=== PATIENT | female | born 1965 | race Two or more races ===

== ENCOUNTER → 2017-05-11 | Outpatient (CLI) | payer OTHER ==
[~2017-05-11] VITALS: Ht 152.4 cm; Wt 59.0 kg
[~2017-05-11] MED LIST: FLEXERIL10 MG PO; MAXITROL EYE DRO5 ML OP; TRAM1TAB98 PO; TRAMADOL HCL50 MG PO
== END | disposition home or self-care (01) ==
LOC: PPHC 09:52
DX: K13.79 Other lesions of oral mucosa (principal)

== ENCOUNTER 2018-07-26 09:52 | Outpatient (CLI) | payer OTHER | END 2018-07-26 10:10 | disposition home or self-care (01) | LOC: LAB 09:52 | DX: E03.8 Other specified hypothyroidism (principal); N95.1 Menopausal and female climacteric states; Z13.1 Encounter for screening for diabetes mellitus; Z12.11 Encounter for screening for malignant neoplasm of colon; E55.9 Vitamin D deficiency, unspecified; E78.2 Mixed hyperlipidemia ==

== ENCOUNTER → 2018-07-27 | Outpatient (CLI) | payer OTHER | END | disposition home or self-care (01) | LOC: MAMO-SONO 12:12 | DX: Z12.31 Encounter for screening mammogram for malignant neoplasm of breast (principal) ==

== ENCOUNTER → 2019-01-31 08:34 | Outpatient (CLI) | payer OTHER | END | disposition home or self-care (01) | LOC: LAB 08:34 | DX: J11.1 Influenza due to unidentified influenza virus with other respiratory manifestations (principal) ==

== ENCOUNTER 2019-10-26 06:13 | Outpatient (CLI) | payer OTHER | END 2019-10-26 06:16 | disposition home or self-care (01) | LOC: CERTIFICAD 06:13 | PROVIDERS: ATTEND Family Medicine | DX: Z11.1 Encounter for screening for respiratory tuberculosis (principal) ==

== ENCOUNTER 2019-11-17 11:06 | Emergency (ER) | payer OTHER ==
[~2019-11-17] VITALS: Ht 165.1 cm; Wt 56.7 kg
== END 2019-11-17 15:25 | disposition home or self-care (01) ==
LOC: ER 11:06
DX: R10.13 Epigastric pain (principal); Z03.818 Encounter for observation for suspected exposure to other biological agents ruled out

== ENCOUNTER → 2019-12-05 08:00 | Outpatient (CLI) | payer OTHER | END | disposition home or self-care (01) | LOC: PPH VACUNA 08:00 | DX: Z23 Encounter for immunization (principal) ==

== ENCOUNTER 2020-03-05 14:11 | Outpatient (CLI) | payer OTHER | END 2020-03-05 15:00 | disposition home or self-care (01) | LOC: PPH VACUNA 14:11 | DX: Z23 Encounter for immunization (principal) ==

== ENCOUNTER → 2020-11-11 08:54 | Outpatient (CLI) | payer OTHER | END | disposition home or self-care (01) | LOC: RAD 08:54 | PROVIDERS: ATTEND General Practice | DX: R05 Cough (principal); I10 Essential (primary) hypertension ==

== ENCOUNTER 2020-12-20 15:00 | Outpatient (CLI) | payer OTHER | END 2020-12-20 15:30 | disposition home or self-care (01) | LOC: PPH VACUNA 15:00 | PROVIDERS: ATTEND Emergency Medicine Pediatric Emergency Medicine | DX: Z23 Encounter for immunization (principal) ==

== ENCOUNTER → 2020-12-26 11:00 | Outpatient (CLI) | payer OTHER ==
[~2020-12-26 11:00] MED LIST changes: +NORFLEX100MG PO
== END | disposition home or self-care (01) ==
LOC: PPH VACUNA 10:00
PROVIDERS: ATTEND Emergency Medicine Pediatric Emergency Medicine
DX: Z23 Encounter for immunization (principal)

== ENCOUNTER 2021-02-20 07:26 | Outpatient (CLI) | payer OTHER ==
[~2021-02-20 07:26] MED LIST changes: -NORFLEX100MG PO
== END 2021-02-20 07:45 | disposition home or self-care (01) ==
LOC: MAMO-SONO 07:26
PROVIDERS: ATTEND Internal Medicine Cardiovascular Disease
DX: R10.84 Generalized abdominal pain (principal); N64.59 Other signs and symptoms in breast; N60.11 Diffuse cystic mastopathy of right breast; N60.12 Diffuse cystic mastopathy of left breast

== ENCOUNTER → 2021-02-26 | Outpatient (CLI) | payer OTHER ==
[~2021-02-26] MED LIST changes: +NORFLEX100MG PO
== END | disposition home or self-care (01) ==
LOC: NUCLEAR 08:37
PROVIDERS: ATTEND Internal Medicine Cardiovascular Disease
DX: M81.0 Age-related osteoporosis without current pathological fracture (principal); E55.9 Vitamin D deficiency, unspecified

== ENCOUNTER 2021-02-28 09:20 | Emergency (ER) | payer OTHER ==
[~2021-02-28] VITALS: Ht 152.4 cm; Wt 56.7 kg
[~2021-02-28 09:20] MED LIST changes: -NORFLEX100MG PO
[2021-02-28] MEDS ORDERED: NORFLEX100MG PO (11:33)
== END 2021-02-28 12:09 | disposition home or self-care (01) ==
LOC: ER 09:20
DX: M54.2 Cervicalgia (principal); M25.552 Pain in left hip; M54.50 Low back pain, unspecified; V49.88XA Car occupant (driver) (passenger) injured in other specified transport accidents, initial encounter; Y92.89 Other specified places as the place of occurrence of the external cause

== ENCOUNTER 2021-05-05 05:45 | Day surgery (SDC) | payer OTHER ==
[~2021-05-05 05:45] MED LIST changes: +NORFLEX100MG PO
== END 2021-05-05 13:35 | disposition home or self-care (01) ==
LOC: AMB-ENDOS 05:45
PROVIDERS: ATTEND Surgery
DX: R19.4 Change in bowel habit (principal); K92.2 Gastrointestinal hemorrhage, unspecified

== ENCOUNTER 2021-06-12 07:12 | Outpatient (CLI) | payer OTHER | END 2021-06-12 07:13 | disposition home or self-care (01) | LOC: NUCLEAR 07:12 | PROVIDERS: ATTEND Surgery | DX: K92.2 Gastrointestinal hemorrhage, unspecified (principal) ==

== ENCOUNTER 2021-11-12 06:23 | Outpatient (CLI) | payer OTHER | END 2021-11-12 06:24 | disposition home or self-care (01) | LOC: LAB 06:23 | PROVIDERS: ATTEND General Practice | DX: R05.9 Cough, unspecified (principal); Z11.3 Encounter for screening for infections with a predominantly sexual mode of transmission ==

== ENCOUNTER 2021-11-19 08:00 | Outpatient (CLI) | payer OTHER | END 2021-11-19 08:05 | disposition home or self-care (01) | LOC: PPH VACUNA 08:00 | PROVIDERS: ATTEND Emergency Medicine Pediatric Emergency Medicine | DX: Z23 Encounter for immunization (principal) ==

== ENCOUNTER 2021-12-12 06:34 | Outpatient (CLI) | payer OTHER | END 2021-12-12 06:35 | disposition home or self-care (01) | LOC: LAB 06:34 | PROVIDERS: ATTEND General Practice | DX: E78.5 Hyperlipidemia, unspecified (principal); E55.9 Vitamin D deficiency, unspecified; N39.0 Urinary tract infection, site not specified; R42 Dizziness and giddiness; Z00.00 Encounter for general adult medical examination without abnormal findings ==

== ENCOUNTER 2022-03-05 09:06 | Outpatient (CLI) | payer OTHER | END 2022-03-05 09:16 | disposition home or self-care (01) | LOC: PPH VACUNA 09:06 | PROVIDERS: ATTEND Emergency Medicine Pediatric Emergency Medicine | DX: Z23 Encounter for immunization (principal) ==

== ENCOUNTER 2022-07-01 06:24 | Outpatient (CLI) | payer OTHER | END 2022-07-01 13:14 | disposition home or self-care (01) | LOC: LAB 06:24 | DX: E78.5 Hyperlipidemia, unspecified (principal); E55.9 Vitamin D deficiency, unspecified; N39.0 Urinary tract infection, site not specified; R10.9 Unspecified abdominal pain; Z00.00 Encounter for general adult medical examination without abnormal findings ==

== ENCOUNTER → 2022-07-10 06:51 | Outpatient (CLI) | payer OTHER | END | disposition home or self-care (01) | LOC: LAB 06:51 | PROVIDERS: ATTEND General Practice | DX: N39.0 Urinary tract infection, site not specified (principal) ==

== ENCOUNTER 2022-07-31 10:47 | Outpatient (CLI) | payer OTHER | END 2022-07-31 14:44 | disposition home or self-care (01) | LOC: LAB 10:47 | PROVIDERS: ATTEND Urology | DX: N30.00 Acute cystitis without hematuria (principal) ==

== ENCOUNTER 2022-09-23 09:07 | Outpatient (CLI) | payer OTHER | END 2022-09-23 09:13 | disposition home or self-care (01) | LOC: SONOGRAMA 09:07 | PROVIDERS: ATTEND Obstetrics & Gynecology Gynecology | DX: N60.12 Diffuse cystic mastopathy of left breast (principal); N60.11 Diffuse cystic mastopathy of right breast; Z12.31 Encounter for screening mammogram for malignant neoplasm of breast; R10.2 Pelvic and perineal pain ==

== ENCOUNTER 2022-09-28 06:19 | Outpatient (CLI) | payer OTHER | END 2022-09-28 06:20 | disposition home or self-care (01) | LOC: LAB 06:19 | PROVIDERS: ATTEND Obstetrics & Gynecology Gynecology | DX: D64.9 Anemia, unspecified (principal); E03.9 Hypothyroidism, unspecified; E55.9 Vitamin D deficiency, unspecified; E78.5 Hyperlipidemia, unspecified; Z12.11 Encounter for screening for malignant neoplasm of colon ==

== ENCOUNTER → 2022-11-04 06:18 | Outpatient (CLI) | payer OTHER | END | disposition home or self-care (01) | LOC: LAB 06:18 | PROVIDERS: ATTEND Internal Medicine Cardiovascular Disease | DX: E78.1 Pure hyperglyceridemia (principal); E11.9 Type 2 diabetes mellitus without complications ==

== ENCOUNTER 2022-11-13 07:55 | Outpatient (CLI) | payer OTHER | END 2022-11-13 08:06 | disposition home or self-care (01) | LOC: NUCLEAR 07:55 | PROVIDERS: ATTEND Internal Medicine | DX: I25.10 Atherosclerotic heart disease of native coronary artery without angina pectoris (principal) ==

== ENCOUNTER 2022-12-11 08:25 | Outpatient (CLI) | payer OTHER | END 2022-12-11 08:35 | disposition home or self-care (01) | LOC: PPH VACUNA 08:25 | PROVIDERS: ATTEND Emergency Medicine Pediatric Emergency Medicine | DX: Z23 Encounter for immunization (principal) | CPT/HCPCS: 90686; G0008 ==

== ENCOUNTER 2023-01-29 08:23 | Outpatient (CLI) | payer OTHER | END 2023-01-29 08:30 | disposition home or self-care (01) | LOC: SONOGRAMA 08:23 | PROVIDERS: ATTEND General Practice | DX: N39.0 Urinary tract infection, site not specified (principal); R10.9 Unspecified abdominal pain; Z88.0 Allergy status to penicillin; Z88.6 Allergy status to analgesic agent ==

== ENCOUNTER 2023-12-24 09:25 | Outpatient (CLI) | payer OTHER | END 2023-12-24 10:00 | disposition home or self-care (01) | LOC: PPH VACUNA 09:25 | PROVIDERS: ATTEND Emergency Medicine Pediatric Emergency Medicine | DX: Z23 Encounter for immunization (principal) ==

== ENCOUNTER 2024-01-11 10:17 | Outpatient (CLI) | payer OTHER | END 2024-01-11 10:27 | disposition home or self-care (01) | LOC: MAMO-SONO 10:17 | PROVIDERS: ATTEND Surgery | DX: N60.11 Diffuse cystic mastopathy of right breast (principal); N60.12 Diffuse cystic mastopathy of left breast ==

== ENCOUNTER 2024-10-25 07:08 | Outpatient (CLI) | payer OTHER ==
[2024-10-26 07:08] LABS: HEPATITIS A ANTIBODY IGG Negative (Negative); HEPATITIS B SURFACE ANTIBODY Reactive (.); HEPATITIS C VIRUS ANTIBODY Non Reactive (Non Reactive)
== END 2024-10-25 07:12 | disposition home or self-care (01) ==
LOC: LAB 07:08
DX: A64 Unspecified sexually transmitted disease (principal); B19.9 Unspecified viral hepatitis without hepatic coma

== ENCOUNTER → 2025-01-03 | Outpatient (CLI) | payer OTHER | END | disposition home or self-care (01) | LOC: RAD 08:20 | PROVIDERS: ATTEND Orthopaedic Surgery | DX: M25.571 Pain in right ankle and joints of right foot (principal) ==

== ENCOUNTER 2025-01-05 07:50 | Outpatient (CLI) | payer OTHER | END 2025-01-05 08:00 | disposition home or self-care (01) | LOC: PPH VACUNA 07:50 | PROVIDERS: ATTEND Emergency Medicine Pediatric Emergency Medicine | DX: Z23 Encounter for immunization (principal) ==

== ENCOUNTER 2025-02-19 10:24 | Outpatient (CLI) | payer OTHER | END 2025-02-19 10:25 | disposition home or self-care (01) | LOC: NUCLEAR 10:24 | PROVIDERS: ATTEND Orthopaedic Surgery | DX: M81.0 Age-related osteoporosis without current pathological fracture (principal) ==

== ENCOUNTER 2025-02-27 08:58 | Outpatient (CLI) | payer OTHER | END 2025-02-27 09:05 | disposition home or self-care (01) | LOC: RAD 08:58 | PROVIDERS: ATTEND Orthopaedic Surgery | DX: S82.61XD Displaced fracture of lateral malleolus of right fibula, subsequent encounter for closed fracture with routine healing (principal) ==

== ENCOUNTER → 2025-03-06 06:47 | Outpatient (CLI) | payer OTHER ==
[2025-03-06 07:31] LABS: BASO % 0.5 % (0.1-1.2); EOS # 0.12 (0.04-0.54); EOS % 2.7 % (0.7-7.0); LYMPH # 1.80 (1.18-3.74); LYMPH % 40.6 % (19.3-53.1); MEAN PLATELET VOLUME 9.50 fl (9.4-12.4); MONO # 0.45 (0.24-0.82); MONO % 10.2 % (4.7-12.5); NEUT # 2.04 (1.56-6.13); NEUT % 46.0 % (34.0-71.1); RED CELL DISTRIBUTION WIDTH 13.0 % (11.6-14.4)
[2025-03-06 08:28] LABS: ALT/SGPT 27.0 U/L (12-78); AST/SGOT 17.0 U/L (15-37); BILIRUBIN TOTAL 0.41 mg/dL (0.3-1.2); BILIRUBIN,CONJUGATED 0.14 mg/dL (0.0-0.2); BUN CREA RATIO 22.0 (7.0-25.0); CHOL HDL RATIO 3.3 (0-5.0); CREATININE SERUM 0.6 mg/dL (0.55-1.02); GFR 103.04; GLOBULINA 3.6 G/DL (2.4-3.5); GLUCOSE FASTING 115.0 mg/dL (65-100); HDL 77.0 mg/dl (40-60); LDL 146.0 mg/dl (0-130); OSMOLALITY SERUM 284.0 MOSM/KG (275-295); T3 UPTAKE 37.0 % (30-39); T4 TOTAL 8.05 UG/DL (4.8-13.9); TSH 2.69 uIU/mL (0.358-3.74); VLDL 28.0 (0-39)
[2025-03-06 11:20] LABS: T3 TOTAL 1.28 ng/ml (0.846-2.02); VITAMIN D3 25 HYDROXY 23.4 ng/ml (30-120)
== END | disposition home or self-care (01) ==
LOC: LAB 06:47
PROVIDERS: ATTEND Orthopaedic Surgery
DX: E78.5 Hyperlipidemia, unspecified (principal); E55.9 Vitamin D deficiency, unspecified; N39.0 Urinary tract infection, site not specified; R10.9 Unspecified abdominal pain; R42 Dizziness and giddiness; Z00.00 Encounter for general adult medical examination without abnormal findings; E56.1 Deficiency of vitamin K